=== PATIENT | female | born 1970 | race Caucasian/White ===

== ENCOUNTER 2021-07-09 01:10 | Observation (INO) ==
[2021-07-09 01:53] LABS: Basophils % 0.5 %; Eosinophils # 0.2 K/mcL (0.0-0.6); Eosinophils % 2.9 %; Hematocrit 41.2 % (35.3-44.9); Hemoglobin 13.8 g/dL (11.5-15.4); Immature Granulocytes % 0.3 % (0-4); Lymphocytes # 2.8 K/mcL (0.6-4.6); Lymphocytes % 37.4 %; Mean Corpuscular HGB Conc 33.5 g/dL (31.6-35.5); Mean Corpuscular Hemoglobin 31.4 pg (28.0-33.3); Mean Corpuscular Volume 93.8 fL (83.0-100.0); Mean Platelet Volume 9.5 fL (9.4-12.4); Monocytes # 0.6 K/mcL (0.0-1.3); Monocytes % 8.5 %; Neutrophils # 3.8 K/mcL (1.6-8.9); Platelet Count 257 K/mcL (140-400); Red Blood Count 4.39 M/mcL (3.82-4.97); Red Cell Distribution Width 11.9 % (11.5-14.5); Segmented Neutrophils % 50.4 %; White Blood Count 7.5 K/mcL (4.3-11.1)
[2021-07-09 02:12] LABS: BUN/Creatinine Ratio 16 (6-26); Blood Urea Nitrogen 12 mg/dL (6-20); Calcium 9.1 mg/dL (8.6-10.3); Carbon Dioxide 27 mEq/L (23-29); Chloride 104 mEq/L (98-107); Glucose 116 mg/dL (70-105); Osmolality,Calculated 289 (280-300); Potassium 3.3 mEq/L (3.5-5.1); Sodium 139 mEq/L (136-145); eGFR For African Americans > 60 (> 60); eGFR For Non-African Americans > 60 (> 60)
[2021-07-09 02:16] LABS: Troponin I < 0.03 ng/mL (< 0.04)
[2021-07-09] MEDS ORDERED: Aspirin 81 MG TAB.CHEW PO ONE (03:22)
[2021-07-09] MEDS ORDERED: Nitroglycerin 0.4 MG TAB.SUBL SL ONE (03:23)
[2021-07-09] MEDS ORDERED: Ondansetron 4 MG/2 ML VIAL ONE (04:09)
[2021-07-09] MEDS ORDERED: Ondansetron 4 MG/2 ML VIAL IVP ONE (04:14)
[2021-07-09] MEDS ORDERED: Ondansetron 4 MG/2 ML VIAL IVP PRN (05:19)
[2021-07-09] MEDS ORDERED: Acetaminophen 325 MG TABLET PO PRN (05:19)
[2021-07-09] MEDS ORDERED: Naloxone 0.4 MG/ML INJ IVP PRN (05:19)
[2021-07-09] MEDS ORDERED: Perflutren Lipid Microsphere 1.3 ML in 0.9 % Sodium Chloride 8.7 ML IVP PRN (05:22)
[2021-07-09] MEDS ORDERED: Regadenoson 0.4 MG/5 ML SYRINGE IVP ONE (06:24)
[2021-07-09 07:50] LABS: INR 1.1; Prothrombin Time 12.3 Seconds (9.4-12.1)
[2021-07-09 08:25] LABS: Albumin 4.1 g/dL (3.5-5.7); Albumin/Globulin Ratio 1.6 (1.1-2.2); Bilirubin,Direct 0.1 mg/dL (0.0-0.2); Bilirubin,Indirect 0.5 mg/dL (0.0-1.0); Bilirubin,Total 0.6 mg/dL (0.3-1.0); Globulin 2.6 g/dL (2.4-3.5); Total Protein 6.7 g/dL (6.4-8.9)
[2021-07-09 08:30] LABS: Chol/HDL Ratio 2.6 (0-4.9); Magnesium 2.1 mg/dL (1.6-2.6)
[2021-07-09 13:17] LABS: Bacteria,Urine Few per hpf (None-Few); Bilirubin,Urine Negative (Negative); Blood,Urine Trace (Negative); Clarity,Urine Clear (Clear); Color,Urine Light-Yellow (Yellow); Glucose,Urine (UA) Normal (Normal); Ketones,Urine Negative (Negative); Leukocyte Esterase,Urine Negative (Negative); Mucus,Urine Few per lpf (None-Few); Nitrite,Urine Negative (Negative); PH,Urine 7.5 pH Units (5.0-8.0); Protein,Urine Trace mg/dL (Neg-Trace); Squamous Epithelial Cell,Urine Few per hpf (None-Few); Urobilinogen,Urine Normal (Normal); WBC,Urine 0-3 per hpf (0-3)
[2021-07-09 15:08] VITALS: BP 135/77; PULSE 64; TEMP 98.3; O2SAT 95
[2021-07-09 15:12] LABS: Estimated Average Glucose 111 mg/dl; Hemoglobin A1C 5.5 %
== END 2021-07-09 17:20 | disposition home or self-care (01) ==
LOC: 3BNU 01:10 → EMEROOARM 01:10 → SUATTDRO 04:56 → 3BNU 05:17
PROVIDERS: ADMIT Student in an Organized Health Care Education/Training Program; ATTEND Pharmacist